=== PATIENT | male | born 1965 | race Caucasian/White ===

== ENCOUNTER 2018-02-14 14:20 | Inpatient (IN) | payer MEDICAID ==
[~2018-02-14] VITALS: Ht 167.6 cm; Wt 62.1 kg
[2018-02-14 14:25] VITALS: BP_SYST 95
[2018-02-14] MEDS ORDERED: NACL 0.9% 1,000 ML IV ONE (14:45)
[2018-02-14 15:07] LABS: BASOPHILS % (AUTO) 0.6 % (0.0-2.0); EOSINOPHILS # (AUTO) 0.1 K/uL (0.0-0.4); HEMATOCRIT 42.8 % (36-54); HEMOGLOBIN 14.3 g/dL (14.0-18.0); LYMPHOCYTES # (AUTO) 1.5 K/uL (1.0-5.5); LYMPHOCYTES % (AUTO) 22.5 % (20.5-51.5); MEAN CORPUSCULAR HEMOGLOBIN 28 pg (27-31); MEAN CORPUSCULAR HGB CONC 33 % (32-36); MEAN CORPUSCULAR VOLUME 84 fL (79.0-98.0); MONOCYTES # (AUTO) 0.4 K/uL (0.0-1.0); MONOCYTES % (AUTO) 5.4 % (1.7-9.3); NEUTROPHILS # (AUTO) 4.8 K/uL (1.8-7.7); NEUTROPHILS % (AUTO) 70.5 % (40.0-70.0); PLATELET COUNT (AUTO) 432 K/uL (130-430); RED BLOOD CELL COUNT(AUTO) 5.12 MIL/uL (4.2-6.2); RED CELL DISTRIBUTION WIDTH 11.7 % (9.0-15.0); WHITE BLOOD COUNT (AUTO) 6.8 K/uL (4.8-10.8)
[2018-02-14 15:16] LABS: CALCIUM 9.7 mg/dL (8.4-11.0); CREATININE 0.95 mg/dL (0.55-1.30); POTASSIUM 3.9 mmol/L (3.5-5.1)
[2018-02-14 15:21] LABS: ALBUMIN 3.5 g/dL (3.4-4.8); TOTAL BILIRUBIN 0.6 mg/dL (0.0-1.0)
[2018-02-14] MEDS ORDERED: cefTRIAXone 1 GM IVPB PREMIX 50 ML IV ONE (16:00)
[2018-02-14] MEDS ORDERED: VANCOMYCIN HCL 1,000 MG in NS 250 ML IV ONE (16:00)
[2018-02-14] MEDS ORDERED: VANCOMYCIN HCL 1000 MG/VIAL IV ONE (16:47)
[2018-02-14 17:11] VITALS: BP_SYST 104
[2018-02-14] MEDS ORDERED: BENA20TA2 PO (18:04)
[2018-02-14] MEDS ORDERED: ASPI-1155 PO (18:04)
[2018-02-14] MEDS ORDERED: LEVO125T8 PO (18:04)
[2018-02-14] MEDS ORDERED: LIP40 PO (18:04)
[2018-02-14] MEDS ORDERED: METF1000 PO (18:04)
[2018-02-14] MEDS ORDERED: traMADol HCL HCL 50 MG TABLET (ULTRAM) PO PRN (18:15)
[2018-02-14 20:05] VITALS: BP_SYST 102
[2018-02-14] MEDS: CEFEPIME 2 GM in D5W 100 ML IV SCH (20:25)
[2018-02-14] MEDS: ENOXAPARIN SODIUM 40 MG/0.4 ML SYRINGE SUBCUT SCH (20:25)
[2018-02-14] MEDS: INSULIN REGULAR, HUMAN 100 UNITS/ML, 10 ML VIAL (novoLIN R) SUBCUT PRN (20:30)
[2018-02-14] MEDS: metroNIDAZOLE 500 mg/NS 100 ML IV SCH (21:46)
[2018-02-15 00:13] VITALS: BP_SYST 94
[2018-02-15] MEDS: LEVOTHYROXINE SODIUM 0.125 MG TABLET PO SCH (06:18)
[2018-02-15] MEDS: INSULIN REGULAR, HUMAN 100 UNITS/ML, 10 ML VIAL (novoLIN R) SUBCUT PRN ×4 (06:19→21:12)
[2018-02-15 08:00] VITALS: BP_SYST 92
[2018-02-15] MEDS: BENAZEPRIL HCL 20 MG TABLET (LOTENSIN) PO SCH (09:00)
[2018-02-15] MEDS: metFORMIN HCL 500 MG TABLET PO SCH (09:11)
[2018-02-15] MEDS: metroNIDAZOLE 500 mg/NS 100 ML IV SCH (09:11)
[2018-02-15] MEDS: ASPIRIN 81 MG TAB.CHEW PO SCH (09:11)
[2018-02-15] MEDS: ATORVASTATIN 20 MG TABLET PO SCH (09:11)
[2018-02-15] MEDS: CEFEPIME 2 GM in D5W 100 ML IV SCH ×2 (10:12→21:00)
[2018-02-15 12:43] VITALS: BP_SYST 102
[2018-02-15 17:06] VITALS: BP_SYST 126
[2018-02-15] MEDS: BALSAM PERU/CASTOR OIL 60 GM OINT...G. TP SCH (18:00)
[2018-02-15] MEDS: ENOXAPARIN SODIUM 40 MG/0.4 ML SYRINGE SUBCUT SCH (21:11)
[2018-02-15 21:20] VITALS: BP_SYST 92
[2018-02-15 23:38] VITALS: BP_SYST 90
[2018-02-16 04:30] VITALS: BP_SYST 98
[2018-02-16] MEDS: LEVOTHYROXINE SODIUM 0.125 MG TABLET PO SCH (06:45)
[2018-02-16] MEDS: INSULIN REGULAR, HUMAN 100 UNITS/ML, 10 ML VIAL (novoLIN R) SUBCUT PRN ×4 (06:48→21:37)
[2018-02-16 08:52] VITALS: BP_SYST 98
[2018-02-16] MEDS: ASPIRIN 81 MG TAB.CHEW PO SCH (08:56)
[2018-02-16] MEDS: ATORVASTATIN 20 MG TABLET PO SCH (08:56)
[2018-02-16] MEDS: CEFEPIME 2 GM in D5W 100 ML IV SCH ×2 (08:56→21:35)
[2018-02-16] MEDS: metFORMIN HCL 500 MG TABLET PO SCH (08:57)
[2018-02-16] MEDS: BALSAM PERU/CASTOR OIL 60 GM OINT...G. TP SCH (09:00)
[2018-02-16] MEDS: BENAZEPRIL HCL 20 MG TABLET (LOTENSIN) PO SCH (09:00)
[2018-02-16 12:00] VITALS: BP_SYST 100
[2018-02-16] MEDS: VANCOMYCIN HCL 1.25 GM/NS 250 ML IV SCH (14:13)
[2018-02-16 16:48] VITALS: BP_SYST 95
[2018-02-16 20:22] VITALS: BP_SYST 96
[2018-02-16] MEDS: ENOXAPARIN SODIUM 40 MG/0.4 ML SYRINGE SUBCUT SCH (21:36)
[2018-02-17 00:54] VITALS: BP_SYST 98
[2018-02-17] MEDS: VANCOMYCIN HCL 1.25 GM/NS 250 ML IV SCH ×2 (02:55→13:36)
[2018-02-17] MEDS: LEVOTHYROXINE SODIUM 0.125 MG TABLET PO SCH (05:55)
[2018-02-17] MEDS: INSULIN REGULAR, HUMAN 100 UNITS/ML, 10 ML VIAL (novoLIN R) SUBCUT PRN ×4 (05:57→21:16)
[2018-02-17 07:48] LABS: CREATININE 0.7 mg/dL (0.55-1.30); POTASSIUM 4.5 mmol/L (3.5-5.1)
[2018-02-17 08:18] VITALS: BP_SYST 98
[2018-02-17] MEDS: CEFEPIME 2 GM in D5W 100 ML IV SCH ×2 (08:45→21:11)
[2018-02-17] MEDS: metFORMIN HCL 500 MG TABLET PO SCH (08:46)
[2018-02-17] MEDS: ASPIRIN 81 MG TAB.CHEW PO SCH (08:46)
[2018-02-17] MEDS: ATORVASTATIN 20 MG TABLET PO SCH (08:47)
[2018-02-17] MEDS: BENAZEPRIL HCL 20 MG TABLET (LOTENSIN) PO SCH (08:47)
[2018-02-17] MEDS: BALSAM PERU/CASTOR OIL 60 GM OINT...G. TP SCH (08:49)
[2018-02-17 09:31] LABS: CALCIUM 9.1 mg/dL (8.4-10.2)
[2018-02-17 12:17] VITALS: BP_SYST 103
[2018-02-17 16:03] VITALS: BP_SYST 100
[2018-02-17 19:05] VITALS: BP_SYST 104
[2018-02-17] MEDS: ENOXAPARIN SODIUM 40 MG/0.4 ML SYRINGE SUBCUT SCH (21:15)
[2018-02-18 00:01] VITALS: BP_SYST 95
[2018-02-18] MEDS: VANCOMYCIN HCL 1.25 GM/NS 250 ML IV SCH ×2 (01:53→12:22)
[2018-02-18] MEDS: LEVOTHYROXINE SODIUM 0.125 MG TABLET PO SCH (06:46)
[2018-02-18] MEDS: INSULIN REGULAR, HUMAN 100 UNITS/ML, 10 ML VIAL (novoLIN R) SUBCUT PRN ×4 (06:51→21:15)
[2018-02-18 08:00] VITALS: BP_SYST 92
[2018-02-18] MEDS: CEFEPIME 2 GM in D5W 100 ML IV SCH ×2 (08:43→21:09)
[2018-02-18] MEDS: ASPIRIN 81 MG TAB.CHEW PO SCH (08:43)
[2018-02-18] MEDS: ATORVASTATIN 20 MG TABLET PO SCH (08:43)
[2018-02-18] MEDS: metFORMIN HCL 500 MG TABLET PO SCH (08:43)
[2018-02-18] MEDS: BALSAM PERU/CASTOR OIL 60 GM OINT...G. TP SCH (08:44)
[2018-02-18] MEDS: BENAZEPRIL HCL 20 MG TABLET (LOTENSIN) PO SCH (08:44)
[2018-02-18 12:00] VITALS: BP_SYST 101
[2018-02-18 16:00] VITALS: BP_SYST 95
[2018-02-18 19:05] VITALS: BP_SYST 95
[2018-02-18] MEDS: ENOXAPARIN SODIUM 40 MG/0.4 ML SYRINGE SUBCUT SCH (21:16)
[2018-02-19 00:38] VITALS: BP_SYST 84
[2018-02-19] MEDS: VANCOMYCIN HCL 1.25 GM/NS 250 ML IV SCH ×2 (01:46→12:56)
[2018-02-19] MEDS: LEVOTHYROXINE SODIUM 0.125 MG TABLET PO SCH (06:23)
[2018-02-19] MEDS: INSULIN REGULAR, HUMAN 100 UNITS/ML, 10 ML VIAL (novoLIN R) SUBCUT PRN ×2 (06:27→11:46)
[2018-02-19 08:00] VITALS: BP_SYST 99
[2018-02-19] MEDS: ATORVASTATIN 20 MG TABLET PO SCH (08:12)
[2018-02-19] MEDS: metFORMIN HCL 500 MG TABLET PO SCH (08:12)
[2018-02-19] MEDS: ASPIRIN 81 MG TAB.CHEW PO SCH (08:13)
[2018-02-19] MEDS: CEFEPIME 2 GM in D5W 100 ML IV SCH (08:16)
[2018-02-19] MEDS: BALSAM PERU/CASTOR OIL 60 GM OINT...G. TP SCH (08:17)
[2018-02-19] MEDS: BENAZEPRIL HCL 20 MG TABLET (LOTENSIN) PO SCH (09:00)
[2018-02-19 12:00] VITALS: BP_SYST 94
[2018-02-19 15:26] VITALS: BP_SYST 121
[2018-02-19] MEDS ORDERED: CEPH-568 PO (15:29)
[2018-02-19 16:23] VITALS: BP_SYST 121
== END 2018-02-19 16:55 | disposition home or self-care (01) | DRG 383 ==
LOC: SED 14:20 → SMU 16:30
PROVIDERS: ADMIT Family Medicine; ATTEND Family Medicine
PROC: 0H9KXZZ Drainage of Right Lower Leg Skin, External Approach (ICD-10-PCS; principal; 2018-02-14)
DX: L03.115 Cellulitis of right lower limb (principal); E03.9 Hypothyroidism, unspecified; L02.415 Cutaneous abscess of right lower limb; E11.9 Type 2 diabetes mellitus without complications; Z79.4 Long term (current) use of insulin; I10 Essential (primary) hypertension; F17.210 Nicotine dependence, cigarettes, uncomplicated; E78.5 Hyperlipidemia, unspecified; Z91.14 Patient's other noncompliance with medication regimen
CPT/HCPCS: 36415; 80053; 80069; 80202-TC; 82962; 83605; 85025; 87040-TC; 87070-TC; 87186-TC; 96361; 96365; 96366; 96367; 99285; J0692; J0696; J1650; J1815; J3370; J3490; J7060